=== PATIENT | female | born 1950 | race Caucasian/White ===

== ENCOUNTER → 2017-09-26 | Day surgery (SDC) | payer MEDICARE, OTHER ==
[~2017-09-26] VITALS: Ht 168.9 cm; Wt 56.3 kg
[~2017-09-26] MED LIST: *morphine SULFATE 4 MG/ML PERIprocedure ONLY ONE; ATROPINE SULFATE 1% OPHT SOLN 2 ML BTL ONE; BALANCED SALT SOLN OPHT IRRIG 15 ML BTL ONE; CHLORHEXIDINE GLUCONATE 2 % 1 PACK (2 CLOTHS) TOPICAL PRN; DEXAMETHASONE SOD PHOS 4 MG/ML VIAL ONE; DO NOT ADM ANY ANTICOAGULANT DRUGS PRN; EPINEPHrine HCL (1:1000) 1 MG/ML VIAL ONE; FAMOTIDINE 20 MG/2 ML VIAL ONE; LACTATED RINGER'S 1000 ML IV PRN; LEVO25TA4 PO; LIDOCAINE HCL 1% PF 5 ML SYRINGE OTHER ONE; LISI40TA PO; METOPROLOL TARTRATE 25 MG TAB PO PRN; MIDAZOLAM HCL 2 MG/2 ML VIAL ONE; NOVOLOGP2 SQ; ONDANSETRON HCL 4 MG/2 ML VIAL IM PRN; ONDANSETRON HCL 4 MG/2 ML VIAL IV ONE; ONDANSETRON HCL 4 MG/2 ML VIAL IV PUSH PRN; POVIDONE IODINE 5% (ANTISEPSIS KIT) 4 APPLICATIONS EACH NARE PRN; PROPOFOL 200 MG/20 ML AMP IV ONE; RALO1TAB PO; SODIUM CHLORID 0.9% 500 ML IV PRN; SODIUM CHLORIDE 0.9% 20 ML VIAL ONE; TOBRAMYCIN/DEXAMETHASONE OPTH OINT 3.5 GM TUBE ONE; TRIAMCINOLONE ACETONIDE 40 MG/ML VIAL ONE; ceFAZolin INJ 1,000 MG VIAL ONE; ePHEDrine/NS 25 MG/5 ML SYRINGE IV ONE
[2017-09-26] MEDS: TROPICAMIDE 1% OPHT SOLN 15 ML BTL RIGHT EYE SCH ×4 (09:31→10:32)
[2017-09-26] MEDS: CYCLOPENTOLATE HCL 1% OPHT SOLN 2 ML BTL RIGHT EYE SCH ×4 (09:31→10:32)
[2017-09-26] MEDS: PHENYLEPHRINE HCL 2.5% OPTH SOLN 2 ML BTL RIGHT EYE SCH ×4 (09:31→10:32)
[2017-09-26] MEDS: ATROPINE SULFATE 1% OPHT SOLN 5 ML BTL RIGHT EYE SCH ×3 (09:40→10:32)
[2017-09-26 10:09] LABS: AUTOMATED NEUTROPHIL # 2.6 TH/MM3 (1.8-7.7); BASOPHIL % 0.7 % (0.0-2.0); EOSINOPHIL # 0.1 TH/MM3 (0-0.4); HEMATOCRIT 40.3 % (35.0-46.0); HEMOGLOBIN 13.3 GM/DL (11.6-15.3); LYMPHOCYTE # 1.1 TH/MM3 (1.0-4.8); MEAN CELL VOLUME 94.7 FL (80.0-100.0); MEAN CORPUSCULAR HEMOGLOBIN 31.3 PG (27.0-34.0); MEAN CORPUSCULAR HGB CONC 33.1 % (32.0-36.0); MEAN PLATELET VOLUME 9.4 FL (7.0-11.0); MONO % 8.1 % (0.0-8.0); MONOCYTE # 0.3 TH/MM3 (0-0.9); NEUT % 62.2 % (16.0-70.0); PLATELET COUNT 174 TH/MM3 (150-450); RED BLOOD COUNT 4.26 MIL/MM3 (4.00-5.30); RED CELL DISTRIBUTION WIDTH 12.7 % (11.6-17.2); WHITE BLOOD COUNT 4.2 TH/MM3 (4.0-11.0)
[2017-09-26 14:21] VITALS: BP 139/63; PULSE 88; RESP 18; TEMP 98.6; O2SAT 97
--- NOTE | 2017-09-26 15:57 | EKG ---
Date Performed: 09/26/2017 Time Performed: 09:08:51 PTAGE: 67 years EKG: Sinus rhythm NORMAL ECG NO PREVIOUS TRACING DOCTOR: Xi Parker Interpretating Date/Time 09/26/2017 15:56:02
--- NOTE | 2017-09-27 10:37 | MP ---
cc: RAMSES SANTIAGO M.D. DATE OF SURGERY 09/26/2017 PREOPERATIVE DIAGNOSIS Visually significant epiretinal membrane with macular pucker, right eye. POSTOPERATIVE DIAGNOSIS Visually significant epiretinal membrane with macular pucker, right eye. PROCEDURE Trans pars plana vitrectomy with epiretinal membrane peel, right eye. SURGEON Dr. Ramses Santiago. ANESTHESIA General laryngeal mask anesthesia. INDICATION Ms. Evans is a 67-year-old woman with a history of a retinal tear in the past who developed a epiretinal membrane and macular pucker in her right eye with vision down to 20/70. She wished to proceed electively with vitrectomy and membrane peel to try and improve her visual functioning. The risks and benefits of surgery were discussed with the patient. No guarantee was made as to visual outcome. She was brought to [facility] Operating Room-1 on the eye stretcher. Appropriate anesthesia monitoring devices were applied and she was placed under general anesthesia using a laryngeal mask. The right eye was identified as the operative site and prepped and draped in the usual sterile fashion. A lid speculum was placed. The microscope was brought around and adjusted. At this time an appropriate timeout was called with the surgical team agreeing to the surgical site and proposed procedure. Using the Henok 23-gauge valve vitrectomy system the trocar cannulas were placed 3.5 mm posterior to the limbus after first displacing the conjunctiva and with a beveled entrance. The first was placed at approximately 8:45 o'clock and verified to be in the posterior chamber. An infusion cannula was affixed to it and turned on. Two additional trocar cannulas were placed at 10 and 2 o'clock. A small amount of Kenalog was injected to visualize the vitreous. Using the flat contact lens a core vitrectomy was carried out. The membrane was approached with a Carlito membrane scraper as well as with aspiration with the linear extrusion needle and was removed. Its main points of adherence were along the inferotemporal arcade and in the supranasal macula. Once it was removed the fundus was inspected with the indirect ophthalmoscope aided by scleral depression. No new retinal breaks were found and the old retinal break was well-treated. An air-fluid exchange was then performed using a soft-tip linear extrusion needle. 0.05 cc of Kenalog was injected before removing the cannulas one by one with tamponade of the site with a cotton swab. The superior nasal cannula was secured with a single 7-0 Vicryl suture and the infusion cannula was removed lastly leaving the eye with good pressure and no visible air leaks. Atropine drops were placed on the cornea followed by subconjunctival actions of Ancef 125 mg in 0.5 cc and Decadron 2 mg in 0.5 cc. The lid speculum was removed and the patient was undraped. TobraDex ointment was placed on the cornea and then the right eye was patched and shielded. The patient had the laryngeal mass removed in the room and was returned to Recovery laying on her left side. When awake and alert she will be asked to assume a face-down position. MD MEÑO Barbosa/JOHN /12:24 PM /10:23 AM
== END | disposition home or self-care (01) ==
LOC: HSDC 08:43
PROVIDERS: ATTEND Ophthalmology
DX: H35.371 Puckering of macula, right eye (principal); H43.311 Vitreous membranes and strands, right eye; H43.391 Other vitreous opacities, right eye; H43.811 Vitreous degeneration, right eye; H35.413 Lattice degeneration of retina, bilateral; E11.9 Type 2 diabetes mellitus without complications; I10 Essential (primary) hypertension; Z98.890 Other specified postprocedural states; Z79.4 Long term (current) use of insulin; Z01.810 Encounter for preprocedural cardiovascular examination; Z01.818 Encounter for other preprocedural examination
CPT/HCPCS: 00145; 67041; 85025; 93005; J0171; J0690; J1100; J2250; J2270; J2405; J3010; J3301; J7120

== ENCOUNTER → 2017-11-21 | Day surgery (SDC) | payer MEDICARE, OTHER ==
[~2017-11-21] VITALS: Ht 167.6 cm; Wt 55.7 kg
[~2017-11-21] MED LIST changes: +*ONDANSETRON 4 MG VIAL PERIprocedural Use ONLY ONE; +ACETAMINOPHEN 1000 MG/100 ML 100 ML IV ONE; +ATROPINE SULFATE 1% OPHT SOLN 5 ML BTL RIGHT EYE SCH; -BALANCED SALT SOLN OPHT IRRIG 15 ML BTL ONE; +CYCLOPENTOLATE HCL 1% OPHT SOLN 2 ML BTL RIGHT EYE SCH; +DEXAMETHASONE SOD PHOS 4 MG/ML VIAL IV ONE; -FAMOTIDINE 20 MG/2 ML VIAL ONE; +LACTATED RINGER'S 1000 ML INJ 1,000 ML IV ONE; -ONDANSETRON HCL 4 MG/2 ML VIAL IM PRN; -ONDANSETRON HCL 4 MG/2 ML VIAL IV PUSH PRN; +PHENYLEPH/NS 1000 MCG/10 ML SYR IV ONE; +PHENYLEPHRINE HCL 2.5% OPTH SOLN 2 ML BTL RIGHT EYE SCH; +PROMETHAZINE INJ 25 MG/ML VIAL ONE; -SODIUM CHLORIDE 0.9% 20 ML VIAL ONE; +STERILE WATER FOR INJECTION 20 ML VIAL ONE; +TOBRAMYCIN 0.3%/DEXAMETHASONE 0.1% OPHT SUSP 5 ML BTL ONE; -TRIAMCINOLONE ACETONIDE 40 MG/ML VIAL ONE; +TRIAMCINOLONE ACETONIDE/PF 40 MG/ML OPTH VIAL ONE; +oxyCODONE/ACETAMINOPHEN 5 MG/325 MG TAB ONE
[2017-11-21 07:01] LABS: AUTOMATED NEUTROPHIL # 2.1 TH/MM3 (1.8-7.7); BASOPHIL % 0.8 % (0.0-2.0); EOSINOPHIL # 0.1 TH/MM3 (0-0.4); EOSINOPHIL % 3.7 % (0.0-4.0); HEMATOCRIT 39.6 % (35.0-46.0); HEMOGLOBIN 13.7 GM/DL (11.6-15.3); LYMPH % 27.9 % (9.0-44.0); MEAN CELL VOLUME 92.7 FL (80.0-100.0); MEAN CORPUSCULAR HEMOGLOBIN 32.1 PG (27.0-34.0); MEAN CORPUSCULAR HGB CONC 34.6 % (32.0-36.0); MEAN PLATELET VOLUME 8.6 FL (7.0-11.0); MONO % 8.9 % (0.0-8.0); MONOCYTE # 0.3 TH/MM3 (0-0.9); NEUT % 58.7 % (16.0-70.0); PLATELET COUNT 183 TH/MM3 (150-450); RED BLOOD COUNT 4.27 MIL/MM3 (4.00-5.30); RED CELL DISTRIBUTION WIDTH 13.1 % (11.6-17.2); WHITE BLOOD COUNT 3.5 TH/MM3 (4.0-11.0)
[2017-11-21] MEDS: TROPICAMIDE 1% OPHT SOLN 15 ML BTL RIGHT EYE SCH ×4 (07:20→08:15)
[2017-11-21] MEDS: CYCLOPENTOLATE HCL 1% OPHT SOLN 2 ML BTL RIGHT EYE SCH ×3 (07:20→08:00)
[2017-11-21] MEDS: PHENYLEPHRINE HCL 2.5% OPTH SOLN 2 ML BTL RIGHT EYE SCH ×4 (07:20→08:15)
[2017-11-21] MEDS: ATROPINE SULFATE 1% OPHT SOLN 5 ML BTL RIGHT EYE SCH ×3 (07:45→08:15)
--- NOTE | 2017-11-21 12:39 | MP ---
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 PROCEDURE: Trans pars plana vitrectomy, membranectomy, internal drainage of subretinal fluid using Perfluoron liquid, endolaser photocoagulation, and instillation of 1000 centistoke silicone oil. SURGEON: Anahy Solomon MD ANESTHESIA: General laryngeal mask anesthesia. Ms. Evans is a 66-year-old diabetic woman who has a history of retinal tears in both ears, who developed a visually significant epiretinal membrane with macular pucker in her right eye that was operated on approximately 2 months ago. On or about 11/19/2017, she started to develop a dark spot in her vision and was brought in and found to have a rhegmatogenous retinal detachment from approximately 6 o'clock up to 12 o'clock with 2 star folds in the midperiphery inferotemporally. The macula was detached. It was recommended that she undergo another surgery to try and reattach the retina, which would be more involved than her previous surgery and also could include the use of silicone oil tamponade. The risks and benefits of surgery and silicone oil were discussed with the patient and she wished to proceed. Informed consent was obtained. No guarantee was made as to visual outcome. She was brought to [facility] operating room 1 on the eye stretcher. Appropriate anesthesia monitoring devices were applied and she was placed under general anesthesia using a laryngeal mask. The right eye was identified as the operative site and prepped and draped in the usual sterile fashion. The lid speculum was placed. At this time, an appropriate time-out was called with the surgical team agreeing to the planned procedure and surgical site. Using the Henok 23 gauge vitrectomy system, the trocar cannulas were placed 3.5 mm posterior to the limbus. The first one was placed inferotemporally and an infusion cannula was affixed to it after it had been verified to be in the posterior chamber. Two additional trocar cannulas were placed at approximately 9:30 and 2:30 o'clock. The eye was entered with the endoilluminator light pipe and vitrectomy cutter. Residual peripheral vitreous was removed after first anchoring the posterior pole with a limited amount of Perfluoron liquid. After the vitrectomy to the vitreous base and beyond was performed, attention was drawn to the star folds, one of which was approximately at 9 o'clock and the other at approximately 7:30 o'clock. These were dissected using a Adeel pick and pick forceps. Additional Perfluoron was used once these had been relaxed to flatten the retina and then endolaser photocoagulation was performed around any breaks superotemporally and in the periphery 360 degrees. The power used with the endolaser probe was 300 milliwatts and 0.1 second exposure. A total of 2239 spots were placed around the eye. The Perfluoron was then removed and replaced with air and the air was then removed and replaced with 1000 centistoke silicone oil. The cannulas were removed one by one and those sites closed with an interrupted 7-0 Vicryl suture. The pressure of the eye was left in normal range. Subconjunctival injections of Ancef 125 mg in 0.5 mL and Decadron 2 mg in 0.5 mL were given at separate sites. The lid speculum was removed and the patient was undraped. Tobradex ointment was placed on the cornea and then the right eye was patched and shielded. The patient had the laryngeal mask removed in the room and was returned to recovery in good condition, lying on her left side. When awake, she will be asked to start face-down positioning and will be seen in the office at 9:00 tomorrow morning. MD MEÑO Barbosa/VALENTIN , 12:15 PM , 12:38 PM
[2017-11-21 13:54] VITALS: PULSE 78; RESP 20; TEMP 97.5; O2SAT 93
[2017-11-21 14:30] VITALS: BP 132/56
== END | disposition home or self-care (01) ==
LOC: HSDC 06:13
PROVIDERS: ATTEND Ophthalmology
DX: H33.031 Retinal detachment with giant retinal tear, right eye (principal); H33.41 Traction detachment of retina, right eye; E11.9 Type 2 diabetes mellitus without complications; I10 Essential (primary) hypertension; Z01.818 Encounter for other preprocedural examination
CPT/HCPCS: 00145; 67113; 82948; 85025; C1814; J0131; J0171; J0690; J1100; J2250; J2270; J2370; J2405; J2550; J3010; J7120; J3300